=== PATIENT | female | born 1940 | race Caucasian/White ===

== ENCOUNTER 2023-02-26 20:19 | Emergency (ER) | payer OTHER ==
[~2023-02-26] VITALS: Ht 162.6 cm; Wt 74.4 kg
--- NOTE | 2023-02-26 20:45 | NUR ---
[id number] FOR GLF FRM WHEELCHAIR, UNWITNESSED. PT DENIES ANY DISCOMFORT HX DEMENTIA. PT GERMAN SPEAKING, BREATHING DOES NOT APPEAR LABOR. PT ATTACHED TO MONITOR AND PULSE OX. AWAITING MD PRICE
--- NOTE | 2023-02-26 21:13 | NUR ---
EVALUATED BY DR RAMANA FELIZ
--- NOTE | 2023-02-26 21:33 | NUR ---
PT TAKEN TO CT VIA MARY
--- NOTE | 2023-02-26 22:21 | NUR ---
[facility] CALLED FOR BLS GOING BACK TO [facility] PER [facility] ETA 45- 60 MIN
--- NOTE | 2023-02-26 22:32 | NUR ---
TELEPHONE CALL TO [facility], REPORT GIVEN TO
--- NOTE | 2023-02-26 23:12 | NUR ---
PT TRANSFERRED BACK TO [facility]. VS WNL. REPORT GIVEN TO TI PURCELL
[2023-02-26 23:13] VITALS: BP 112/58; TEMP 98.3; O2SAT 95
== END 2023-02-26 23:14 | disposition home or self-care (01) ==
LOC: ER 20:21
DX: T14.8XXA Other injury of unspecified body region, initial encounter (principal); K59.00 Constipation, unspecified; W17.89XA Other fall from one level to another, initial encounter; Y93.89 Activity, other specified; Y92.89 Other specified places as the place of occurrence of the external cause; Y99.8 Other external cause status; R51.9 Headache, unspecified
CPT/HCPCS: 70450-TC; 72125-TC; 72131-TC